=== PATIENT | female | born 1975 | race Caucasian/White ===

== ENCOUNTER 2021-09-20 04:32 | Day surgery (SDC) | payer BC ==
[2021-09-17 11:44] VITALS: BMI 26.2
[2021-09-20 12:04] VITALS: TEMP 97.5
[2021-09-20 12:54] VITALS: BP 122/74; PULSE 55
== END 2021-09-20 13:08 | disposition home or self-care (01) ==
LOC: JASU-ENDO 04:32
PROVIDERS: ATTEND Internal Medicine Gastroenterology
PROC: 0DBH8ZX Excision of Cecum, Via Natural or Artificial Opening Endoscopic, Diagnostic (ICD-10-PCS; principal; 2021-09-20 10:15)
DX: Z12.11 Encounter for screening for malignant neoplasm of colon (principal); D64.9 Anemia, unspecified; K57.30 Diverticulosis of large intestine without perforation or abscess without bleeding; K64.8 Other hemorrhoids; D12.0 Benign neoplasm of cecum
CPT/HCPCS: 81025; 88305-TC

== ENCOUNTER 2021-10-04 04:28 | Day surgery (SDC) | payer BC ==
[2021-10-02 12:58] VITALS: BMI 28.3
[2021-10-04 09:25] VITALS: TEMP 97.7
[2021-10-04 10:48] VITALS: BP 131/89; PULSE 62
== END 2021-10-04 10:45 | disposition home or self-care (01) ==
LOC: JASU-ENDO 04:28
PROVIDERS: ATTEND Internal Medicine Gastroenterology
PROC: 0DB78ZX Excision of Stomach, Pylorus, Via Natural or Artificial Opening Endoscopic, Diagnostic (ICD-10-PCS; 2021-10-04)
PROC: 0DB68ZX Excision of Stomach, Via Natural or Artificial Opening Endoscopic, Diagnostic (ICD-10-PCS; 2021-10-04)
PROC: 0DB98ZX Excision of Duodenum, Via Natural or Artificial Opening Endoscopic, Diagnostic (ICD-10-PCS; principal; 2021-10-04 08:45)
DX: D50.9 Iron deficiency anemia, unspecified (principal); K29.50 Unspecified chronic gastritis without bleeding; B96.81 Helicobacter pylori [H. pylori] as the cause of diseases classified elsewhere
CPT/HCPCS: 81025; 88305-TC; 88342-TC